=== PATIENT | female | born 1935 | race Caucasian/White ===

== ENCOUNTER 2024-06-11 11:58 | Day surgery (SDC) | payer MEDICARE ==
[~2024-06-11 11:58] MED LIST: ALPRAZolam 0.25 MG TAB PO PRN; ALPRAZolam 0.5 MG TAB PO PRN; HEPARIN SODIUM,PORCINE (1 ML) 2,500 UNIT in SODIUM CHLORIDE 0.9% 250 ML IRRIGATION PRN; HEPARIN SODIUM,PORCINE 10,000 UNIT in SODIUM CHLORIDE 0.9% 1,000 ML IRRIGATION PRN; NITROGLYCERIN SL TABS 0.4 MG TAB SUBLINGUAL PRN
[2024-06-11] MEDS: ASPIRIN 325 MG TAB PO STA (12:44)
[2024-06-11] MEDS: SODIUM CHLORIDE 0.9% 1,000 ML in EMPTY BAG 1 BAG IV SCH (12:45)
[2024-06-11] MEDS: ATORVASTATIN 80 MG TAB PO STA (12:45)
[2024-06-11 12:50] LABS: African American GFR (CKD) >90 (>60 ml/min/1.73 sqM); Anion Gap 7 mmol/L; Blood Urea Nitrogen 16 mg/dL (7-17); Calcium 9.4 mg/dL (8.4-10.2); Carbon Dioxide 31 mmol/L (22-30); Chloride 103 mmol/L (98-107); Glucose 115 mg/dL (74-99); Non-African American GFR(CKD) 82 (>60 ml/min/1.73 sqM); Potassium 4.4 mmol/L (3.5-5.1); Sodium 141 mmol/L (137-145)
[2024-06-11 12:53] VITALS: TEMP 98.2
[2024-06-11] MEDS: IV FLUID CONTINUATION 1,000 ML IV ONE (12:53)
[2024-06-11 13:06] LABS: HCT 43.2 % (34.0-46.0); HGB 14.6 gm/dL (11.4-16.0); MCH 30.3 pg (25.0-35.0); MCHC 33.7 g/dL (31.0-37.0); MCV 89.9 fL (80.0-100.0); Mean Platelet Volume 8.6; Platelet Count 153 k/uL (150-450); RDW 13.5 % (11.5-15.5); WBC 8.5 k/uL (3.8-10.6)
[2024-06-11 13:53] LABS: Basophils # (M) 0.09 k/uL (0-0.2); Eosinophils # (M) 0.09 k/uL (0-0.7); Lymphocytes # (M) 2.21 k/uL (1.0-4.8); Monocytes # (M) 0.34 k/uL (0-1.0); Neutrophils # (M) 5.78 k/uL (1.3-7.7); Neutrophils % (M) 68 %; Nucleated Red Blood Cells 0 /100 WBC (0-0); RBC Morphology Normal; Total Cells Counted 100
[2024-06-11] MEDS: MIDAZOLAM 2 MG/2 ML VIAL IVP ONE (13:57)
[2024-06-11] MEDS: fentaNYL (PF) 50 MCG/ML 2 ML AMP IVP ONE (13:57)
[2024-06-11] MEDS: LIDOCAINE 1% INJ 10MG/ML (20 ML MDV) SQ ONE (13:58)
[2024-06-11] MEDS: VERAPAMIL SYRINGE (5 MG/10 ML) INTRAARTER ONE (14:00)
[2024-06-11] MEDS: HEPARIN SODIUM 1,000 UN/ML (10ML VL) IVP ONE (14:05)
[2024-06-11] MEDS ORDERED: RX INFO: IV CONTRAST WAS GIVEN 1 EACH MISC MISCELLANE PRN (14:20)
--- NOTE | 2024-06-11 14:20 | P.CARDCATH ---
Date of Procedure: 06/11/24 Description of Procedure: DIAGNOSTIC CORONARY ANGIOGRAPHY and LEFT HEART CATH REPORT PROCEDURES PERFORMED: Left heart catheterization Selective coronary angiography Moderate conscious sedation 19 mins [Ultrasound assisted] Right radial access INDICATION: Abnormal stress test. 89-year-old female who presented to cardiology office because of perioperative cardiac risk assessment and symptoms of palpitations. Heart monitor showed evidence of paroxysmal atrial fibrillation. Her Lexiscan nuclear stress test shows moderate size moderate intensity reversible perfusion defect. For this she was scheduled for a heart catheterization procedure. CONSENT: I have explained the procedural steps of above-mentioned procedures in layman's terms to the patient. I discussed the risks (including but not limited to stroke, emergent vascular or cardiac surgery or ), benefits and alternative therapies for the above-mentioned procedure. I discussed the risks of sedation/analgesia and blood product administration (if indicated). The patient has indicated understanding and acceptance of these risks. Conscious Sedation: Patient's ECG, heart rate, blood pressure, pulse oximetry were monitored throughout the duration of procedure under my direct supervision. 1 mg Versed and 25 mcg Fentanyl were used for induction of moderate conscious sedation. Total duration of moderate concious sedation 19 minutes. PROCEDURE: After explaining the risks, benefits and alternatives of the above mentioned procedures in detail to the patient, informed consent was obtained. Patient was taken to the catheterization lab, prepped and draped in usual sterile fashion using universal precuations. Ultrasound was used to identify the radial artery. 1% lidocaine was infiltrated over the right radial artery. A 6-Maldivian sheath was placed and secured in the right radial artery using modified Seldinger technique. The sheath was flushed and 5 mg verapamil was administered intra-arterially. J tipped wire was advanced under fluoroscopic guidance. Once the wire tip reached aortic root 4500 units of IV heparin was given. Over the wire JR4 diagnostic catheter was advanced. The wire in place the catheter was manipulated to cross the aortic valve and entered into LV under fluoroscopy guidance. The wire was removed and the catheter was flushed. LV pressures were obtained and pullback was performed under fluoroscopy. Catheter was manipulated to selectively engage the right coronary ostium. Right coronary angiography was performed in different angiographic projections. The JR4 diagnostic catheter was exchanged for a JL 3.5 diagnostic catheter over the J-wire. The wire was removed, catheter was flushed and manipulated under fluoroscopy to selectively engaged the left coronary ostium. Left coronary angioplasty was performed in different angiographic projections. Catheter was removed over the wire. Radial sheath was flushed. The right radial sheath was removed and a TR band was placed with excellent patent hemostasis was achieved. The patient tolerated the procedure well. Patient was transported back to the post catheterization holding area in stable condition. Angiographic images were reviewed in detail. HEMODYNAMICS: Aortic Pressure: [ ] mmHg. LV pressure: [ ] mmHg. LVEDP [ ] mmHg. There was no significant gradient across the aortic valve. SELECTIVE CORONARY ARTERIOGRAPHY: LEFT MAIN: The left main is long and large caliber vessel. It bifurcates into the LAD and circumflex. Left main appears angiographically normal. LEFT ANTERIOR DESCENDING CORONARY ARTERY: LAD is a large caliber vessel which wraps around to the apex. Proximal mid and distal LAD has mild luminal irregularities in 10 to 20% range. It is otherwise angiographically patent.. LAD gives rise to 2 medium size diagonal branches. Diagonal 1 is angiographical ly patent. Diagonal 2 is a large-caliber which bifurcates. It appears angiographically patent. LEFT CIRCUMFLEX CORONARY ARTERY: It is nondominant vessel. Left circumflex is a small caliber vessel. It appears angiographically normal. RIGHT CORONARY ARTERY: Dominant vessel. The right coronary artery is a large caliber vessel which gives PDA and PLV branch. It appears angiographically normal. IMPRESSION: Angiographically patent coronary arteries Mild diffuse luminal irregularities 20% disease Mild elevated LVEDP Tortuous right subclavian artery PLAN: Aggressive risk factor modification per most recent ACC/AHA guidelines. 100 cc fluids for 4 hours Discharge home in 4 hours Follow-up in the office in 1-2 weeks. Performing Physician Alek Lindsay MD, FACC, RPVI Thank you for allowing [facility] to participate in this patient's care. Feel free to reach out in case of any followup questions.
[2024-06-11] MEDS: SODIUM CHLORIDE 0.9% 1,000 ML IV SCH (14:30)
[2024-06-11] MEDS: IOPAMIDOL-370 100ML BTL INJ ONE (14:37)
[2024-06-11 17:24] VITALS: BP 172/77; PULSE 96; RESP 16
[2024-06-11] MEDS: carvediloL 3.125 MG TAB PO SCH (17:24)
== END 2024-06-11 18:12 | disposition home or self-care (01) ==
LOC: CATHCVL 11:58
PROVIDERS: ATTEND Student in an Organized Health Care Education/Training Program
DX: I48.0 Paroxysmal atrial fibrillation (principal); I10 Essential (primary) hypertension; E78.5 Hyperlipidemia, unspecified; I49.3 Ventricular premature depolarization; Z88.1 Allergy status to other antibiotic agents; Z86.73 Personal history of transient ischemic attack (TIA), and cerebral infarction without residual deficits; Z88.8 Allergy status to other drugs, medicaments and biological substances; Z79.02 Long term (current) use of antithrombotics/antiplatelets; Z79.899 Other long term (current) drug therapy
CPT/HCPCS: 93458; 80048; 85025; 99152; J2250; J2003; J3010; J1644; Q9967